=== PATIENT | male | born 1965 | race Two or more races ===

== ENCOUNTER 2017-08-08 12:07 | Emergency (ER) | payer OTHER ==
[2017-08-08] MEDS: BUPIVACAINE 0.5% 50 ML VIAL. INFIL (14:12)
[2017-08-08] MEDS: DIPHTH,PERTUSS(ACELL),TET TOX 0.5 ML DISP.SYRIN. VAX IM (14:13)
== END 2017-08-08 15:00 | disposition home or self-care (01) ==
LOC: ER 12:07
DX: S62.633B Displaced fracture of distal phalanx of left middle finger, initial encounter for open fracture (principal); W23.0XXA Caught, crushed, jammed, or pinched between moving objects, initial encounter; Y93.89 Activity, other specified; Y92.89 Other specified places as the place of occurrence of the external cause; Y99.0 Civilian activity done for income or pay
CPT/HCPCS: 29130; 73140; 90471; 90715; 96365; 99284-25; J0690; J3490